=== PATIENT | male | born 1955 | race Caucasian/White ===

== ENCOUNTER 2022-10-15 20:33 | Observation (INO) | payer MEDICARE, SELFPAY ==
--- NOTE | ~2022-10-15 | CT_ITS ---
EXAMINATION: CT abdomen pelvis wo con DATE: 10/16/2022 12:19 INDICATION: Rectal bleeding TECHNIQUE: Computed tomography (CT) of the abdomen and pelvis was performed without intravenous contr ast. The dose-length product (DLP) was 1066.76 mGy-cm. Automated exposure control and iterative recon struction technique were employed. COMPARISON: None FINDINGS: Minimal dependent atelectasis is present in the lung bases. The heart size is normal. Punct ate calcifications in an otherwise normal spleen likely represent healed granulomatous disease. The l iver, pancreas, and adrenal glands are normal. There may be stones or sludge in the gallbladder. Ther e is a large diverticulum of the third portion of the duodenum. There is calcified atherosclerosis of the aorta and many of the other arteries. No pathologically enlarged abdominal or pelvic lymph nodes are identified. No free intraperitoneal gas or evidence of bowel obstruction. Colonic diverticulosis is present without evidence of diverticulitis. There are phleboliths of the otherwise normal appendi x. There is moderate lumbar spondylosis. IMPRESSION: 1. No CT correlate for the patient's symptoms. Reviewed, dictated and finalized at location A.
[2022-10-15 20:45] VITALS: BP 144/101; PULSE 113; RESP 19; TEMP 36.2; O2SAT 96
[2022-10-15 20:57] LABS: Basophils Absolute Auto 0.1 K/mm3 (0.0-0.1); Basophils Percent Auto 0.6 % (0.2-1.2); Eosinophils Absolute Auto 0.1 K/mm3 (0-0.3); Hematocrit 42.5 % (42.0-52.0); Immature Granulocyte Absolute 0.04 K/mm3 (0.00-0.031); Immature Granulocyte Percent A 0.3 % (0-0.5); Lymphocytes Absolute Auto 1.39 K/mm3 (0.9-3.2); Lymphocytes Percent Auto 11.7 % (18.3-44.2); Mean Corpuscular HGB Conc 35.3 g/dl (32-36); Mean Corpuscular Hemoglobin 31.4 pg (26-34); Mean Corpuscular Volume 88.9 fl (80-100); Mean Platelet Volume 8.8 fl (7.4-10.4); Monocytes Absolute Auto 1.1 K/mm3 (0.1-0.6); Monocytes Percent Auto 9.4 % (2.6-8.5); Neutrophils Absolute Auto 9.1 K/mm3 (1.3-6.7); Platelet Count Result 326 k/mm3 (150-375); Red Blood Count 4.78 M/mm3 (4.6-6.20); White Blood Count 11.9 K/mm3 (4.5-10.0)
[2022-10-15 21:09] LABS: Alanine Aminotransferase 23 U/L (6-50); Albumin Level 4.3 g/dL (3.5-5.1); Alkaline Phosphatase 84 U/L (38-126); Anion Gap 10 mmol/L (8-16); Aspartate Amino Transferase 22 U/L (17-59); Bilirubin,Total 0.7 mg/dL (0.2-1.3); Blood Urea Nitrogen 18 mg/dL (9-20); Carbon Dioxide 15 mmol/L (22-30); Chloride 110 mmol/L (98-107); Estimated CRCL calculation 80 ml/min; Estimated Glomerular Filt Rate > 60; Glucose 127 mg/dL (65-110); Sodium 135 mmol/L (137-145)
[2022-10-15 21:12] LABS: INR 1.1; Prothrombin Time 14.7 Seconds (11.1-14.7)
[2022-10-15 21:13] LABS: Partial Thromboplastin Time 32.1 SECONDS (22.3-36.8)
[2022-10-15 23:12] VITALS: BP 119/83; PULSE 117; TEMP 36.1; O2SAT 98
[2022-10-16] VITALS (13 sets, daily range): BP systolic 111–134; BP diastolic 73–99; PULSE 79–108; RESP 13–20; TEMP 36.3–36.6; O2SAT 96–100; BMI 30.8
--- NOTE | 2022-10-16 02:35 | ED.GENADULT ---
HPI - General Adult General Chief complaint: GI Bleed Stated complaint: rectal bleeding Time Seen by Provider: 10/16/22 01:39 History of Present Illness HPI narrative: This is a 67-year-old male presenting ED with chief complaint of rectal bleeding. Patient says that he has had URI symptoms for last couple days. He states he had a hard coughing fit this morning and then had a bright red bowel movement. This has continued throughout the day. Patient has history of hemorrhoids. Denies use of blood thinners. He has never had a colonoscopy. He did have prostate cancer treated with radiation. Patient denies weakness, chest pain difficulty breathing or abdominal pain. Related Data Allergies Allergy/AdvReac Type Severity Reaction Status Date / Time No Known Allergies Allergy Verified 10/15/22 20:34 [facility] Past Medical History Medical History (Updated 10/16/22 @ 02:56 by Darius Whitten MD) Hypertension Exam Narrative: APPEARANCE: No apparent distress. Head: atraumatic. EYES: EOMI, NOSE: Atraumatic NECK: Trachea midline RESPIRATORY: No increased rate of breathing CARDIOVASCULAR: RRR, ABDOMINAL: Soft nontender no guarding or rebound, digital rectal exam revealed bright red blood per rectum MUSCULOSKELETAl: No obvious deformities NEURO: Alert. Moving 4/4 extremities SKIN:: Warm, dry. Normal color PSYCHIATRIC: Normal affect Course Vital Signs Vital signs: Vital Signs Temperature 97.1 F L 10/15/22 20:45 Pulse Rate 113 H 10/15/22 20:45 Respiratory Rate 19 10/15/22 20:45 Blood Pressure 144/101 H 10/15/22 20:45 Pulse Oximetry 96 10/15/22 20:45 Oxygen Delivery Room Air 10/15/22 20:45 Temperature 96.9 F L 10/15/22 23:12 Pulse Rate 103 H 10/16/22 01:17 Respiratory Rate 15 10/16/22 01:17 Blood Pressure 132/84 10/16/22 01:17 Pulse Oximetry 97 10/16/22 01:17 Oxygen Delivery Room Air 10/15/22 20:45 Medical Decision Making [facility] Narrative Medical decision making narrative: -Presentation: This is a 67-year-old male presenting with bright red blood per rectum. Slightly tachycardic on arrival. Benign abdominal exam. 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 Initial hemoglobin 15. This will be trended. Metabolic panel within normal limits. -Discussion of Management/Consultants: Dr. Bradly Almendarez -GI, Dr. Zamora -hospitalist -Dx tests considered but not ordered: none -Procedures: none -Interventions: none -Shared decision making / Disposition: patient will be admitted to the hospital to be evaluated by GI. Vital Signs Vital Signs: Vital Signs Temperature 97.1 F L 10/15/22 20:45 Pulse Rate 113 H 10/15/22 20:45 Respiratory Rate 19 10/15/22 20:45 Blood Pressure 144/101 H 10/15/22 20:45 Pulse Oximetry 96 10/15/22 20:45 Oxygen Delivery Room Air 10/15/22 20:45 Temperature 96.9 F L 10/15/22 23:12 Pulse Rate 103 H 10/16/22 01:17 Respiratory Rate 15 10/16/22 01:17 Blood Pressure 132/84 10/16/22 01:17 Pulse Oximetry 97 10/16/22 01:17 Oxygen Delivery Room Air 10/15/22 20:45 Lab Data 10/15/22 20:51 10/15/22 20:51 Labs: Lab Results 10/15/22 10/16/22 Range/Units 20:51 02:45 WBC 11.9 H (4.5-10.0) K/mm3 RBC 4.78 (4.6-6.20) M/mm3 Hgb 15.0 (14.0-18.0) g/dL Hct 42.5 (42.0-52.0) % MCV 88.9 (80-100) fl MCH 31.4 (26-34) pg MCHC 35.3 (32-36) g/dl RDW 13.0 (11.5-14.5) % Plt Count 326 (150-375) k/mm3 MPV 8.8 (7.4-10.4) fl Immature Gra
[2022-10-16 03:32] LABS: Influenza A QL RT-PCR Negative (Negative); Influenza B QL RT-PCR Negative (Negative); RSV RNA, RT-PCR Negative (Negative); SARS-CoV-2 RNA PCR Negative (Negative)
[2022-10-16] MEDS: LACTATED RINGERS 1,000 ML 125 ML IV CONT ×3 (03:49→23:47)
--- NOTE | 2022-10-16 04:56 | ADMGEN ---
This patient, Nathan Whitfield, was admitted to Medical Room 249-01. Patient/family oriented to hospital policies and general routines including ID bracelet, bed and alarms, visiting hours, pain management, procedures, bathroom and other care routines, personal items, smoking policy, room service/diet, and visiting hours. Information on how to activate the Rapid Response Team has been discussed. Patient/Family are encouraged to report perceived risks to care and to ask questions if they do not understand what they are told or what they should do.
--- NOTE | 2022-10-16 08:00 | PM.IMHP ---
H&P: HPI History of Present Illness Date/Time: 10/16/22 08:00 Chief Complaint: Rectal Bleeding Narrative: This is a 67-year-old male with a past medical history of hypertension and prostate cancer status post radiation. He presents to the ER last night with complaints of rectal bleeding at home. States that he had approximately 10 stools which he described as having large amounts of blood in some small clots. He states that he has a head cold and had a big fit of coughing which proceeded his bloody stools. He says that he has never had an episode like this before and denies hemorrhoids. He was concerned by the amount of bleeding so he called his son-in-law to bring him to the hospital as his is currently out of town. Patient was placed NPO and given IV fluids with a GI consult. I ordered a CT of abdomen and pelvis, occult blood test, and Protonix while we await GI recs. Initial hemoglobin on admission was 15, repeat hemoglobin today is 11.9. Besides the bleeding he denies dizziness, weakness, shortness of breath, chest pain, nausea, vomiting, constipation, and diarrhea. He does not take any blood thinners and he does not routinely take NSAIDs. Review of Systems Review of Systems: All systems reviewed & are unremarkable except as noted in HPI and below PMFSH Past Medical History Medical History (Updated 10/16/22 @ 13:40 by Melia Adams APRN) Hypertension Prostate cancer Surgical History Surgical History (Updated 10/16/22 @ 13:41 by Melia Adams APRN) History of right knee joint replacement Social History Social History (Updated 10/16/22 @ 13:43 by Melia Adams APRN) Smoking status: Former smoker Tobacco type: cigarettes Smoking end date: 03/07/13 Alcohol intake: never Substance use: never Lack of Transportation: No Lack of Food: Never True Current Housing: I Have Housing Concerned About Future Housing: No Difficulty Paying Gas/Electric Bills: No Difficulty Paying for Meds: No Currently Unemployed: No Education: Trade/Vocational Certificate Difficulty w/ Childcare or Family Care: No Living arrangements: with family Occupation/Education: retired 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 Gender identity (if verbalized by the patient): Male Spiritual care concerns: No Agree to blood products: Yes Meds Home Medications and Allergies Home Medications Medication Instructions Recorded Confirmed Type lisinopril 20 mg tablet 20 mg PO DAILY 10/16/22 10/16/22 History Allergies Allergy/AdvReac Type Severity Reaction Status Date / Time No Known Allergies Allergy Verified 10/15/22 20:34 Vital Signs Vital Signs - 24 hr 10/15/22 20:45 10/15/22 23:12 10/16/22 00:09 Temperature 97.1 F L 96.9 F L Pulse Rate 113 H 117 H 108 H Respiratory Rate 19 14 Blood Pressure 144/101 H 119/83 125/99 H Pulse Oximetry 96 98 98 Oxygen Delivery Room Air 10/16/22 01:17 10/16/22 03:20 10/16/22 04:39 Temperature Pulse Rate 103 H 101 H 87 Respiratory Rate 15 13 14 Blood Pressure 132/84 119/77 121/82 Pulse Oximetry 97 100 96 Oxygen Delivery 10/16/22 05:20 10/16/22 05:00 10/16/22 05:06 Temperature 98 F Pulse Rate 87 84 100 Respiratory Rate 14 20 Blood Pressure 129/73 Pulse Oximetry 96 100 Oxygen Delivery Room Air Exam Narrative: General: well-nourished, well-appearing 67-year-old male, sitting up in bed, comfortable, NARD, appears slightly anxious Neuro: awake, alert and oriented x4, speech clear, no focal neuro deficits noted HEENMT: normocephalic, atraumatic, EOMI, sclerae anicteric, moist oral mucosa Respiratory: Clear to auscultation bilaterally without crackles, rhonchi or wheezes, nonlabored breathing Cardio: regular rate, regular rhythm with S1-S2 Abdomen: nondistended, normoactive bowel sounds, soft, nontender to palpation Extremities: no edema, erythema, or tenderness to palpation, DP pulses 2+ bi
[2022-10-16 11:44] LABS: Basophils Percent Auto 0.4 % (0.2-1.2); Eosinophils Absolute Auto 0.1 K/mm3 (0-0.3); Eosinophils Percent Auto 0.6 % (0-4.4); Hematocrit 34.8 % (42.0-52.0); Hemoglobin 11.9 g/dL (14.0-18.0); Immature Granulocyte Absolute 0.03 K/mm3 (0.00-0.031); Immature Granulocyte Percent A 0.4 % (0-0.5); Lymphocytes Absolute Auto 1.18 K/mm3 (0.9-3.2); Lymphocytes Percent Auto 15.1 % (18.3-44.2); Mean Corpuscular HGB Conc 34.2 g/dl (32-36); Mean Corpuscular Volume 90.6 fl (80-100); Monocytes Absolute Auto 0.8 K/mm3 (0.1-0.6); Monocytes Percent Auto 10.6 % (2.6-8.5); Neutrophils Absolute Auto 5.7 K/mm3 (1.3-6.7); Neutrophils Percent Auto 72.9 % (45.5-73.1); Platelet Count Result 256 k/mm3 (150-375); Red Blood Count 3.84 M/mm3 (4.6-6.20); Red Cell Distribution Width 13.4 % (11.5-14.5); White Blood Count 7.8 K/mm3 (4.5-10.0)
[2022-10-16 13:06] LABS: Anion Gap 4 mmol/L (8-16); Blood Urea Nitrogen 20 mg/dL (9-20); Calcium 8.4 mg/dL (8.4-10.2); Carbon Dioxide 23 mmol/L (22-30); Chloride 108 mmol/L (98-107); Estimated CRCL calculation 89 ml/min; Estimated Glomerular Filt Rate > 60; Glucose 113 mg/dL (65-110); Sodium 135 mmol/L (137-145)
--- NOTE | 2022-10-16 15:21 | WPDGICN ---
Assessment and Plan Assessment and plan (1) GIB (gastrointestinal bleeding): Code(s): K92.2 - Gastrointestinal hemorrhage, unspecified Status: Acute Assessment and Plan: wonder if could be diverticula bleed but also noted dark stools noted drop in h/h will proceed with egd and colonoscopy (also need to assess for ulcers- use of nsaid's, etc) bowel prep tonigth (2) Painless rectal bleeding: Code(s): K62.5 - Hemorrhage of anus and rectum Status: Acute Assessment and Plan: scopes in am (3) Acute blood loss anemia: Code(s): D62 - Acute posthemorrhagic anemia Status: Acute Assessment and Plan: monitor for more signs of bleeding he has not had BM since 2 am and already feeling better (4) Dark stools: Code(s): R19.5 - Other fecal abnormalities Status: Acute Assessment and Plan: egd (5) Hypertension: Code(s): I10 - Essential (primary) hypertension Status: Acute (6) Prostate cancer: Code(s): C61 - Malignant neoplasm of prostate Status: Acute Assessment and Plan: had radiation will assess for proctitis GI Consult Note Consult date/time: 10/16/22 15:21 Reason for consult: gib HPI: Nathan Whitfield is a 67 year old male with past medical history of hypertension and prostate cancer status post radiation.?He has been dealing with cold symptom for which took nsaid's like 3 days. He came to the ER last night with complaints of new onset of rectal bleeding. He had total of up to 10 loose stools with large amount of bright red blood but towards the end also noted dark material. This started after had a spell of coughing.?He never had scopes. Initial hemoglobin on admission was 15, repeat hemoglobin today is 11.9. CT scan showed diverticulosis in colon and duodenum. Review of Systems Constitutional: Constitutional: Denies weakness Eyes: Eyes: Denies blurry vision ENT: Reports Normal hearing present Cardiovascular: Cardiovascular: Denies chest pain Respiratory: Respiratory: Reports cough Gastrointestinal: Gastrointestinal: Reports hematochezia Genitourinary: Genitourinary: Denies dysuria Musculoskeletal: Musculoskeletal: Denies neck pain Integumentary/Breasts: Skin/Breast: Denies rash Neurologic: Denies Abnormal speech present Psychiatric: Psychiatric: Denies behavioral changes [facility] Past Medical History Medical History (Updated 10/16/22 @ 15:25 by Pola Beyer MD) Acute blood loss anemia Dark stools GIB (gastrointestinal bleeding) Hypertension Prostate cancer Surgical History Surgical History (Updated 10/16/22 @ 13:41 by Melia Adams APRN) History of right knee joint replacement Social History Social History (Updated 10/16/22 @ 13:43 by Melia Adams APRN) Smoking status: Former smoker Tobacco type: cigarettes Smoking end date: 03/07/13 Alcohol intake: never Substance use: never Lack of Transportation: No Lack of Food: Never True Current Housing: I Have Housing Concerned About Future Housing: No Difficulty Paying Gas/Electric Bills: No Difficulty Paying for Meds: No Currently Unemployed: No Education: Trade/Vocational Certificate Difficulty w/ Childcare or Family Care: No Living arrangements: with family Occupation/Education: retired 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
[2022-10-16] MEDS: BISACODYL 5 MG TABLET EC 20 MG PO (17:26)
[2022-10-16] MEDS: polyethylene glycoL 3350 238 GM BOTTLE PO (17:26)
[2022-10-16 18:18] LABS: Hematocrit 38.4 % (42.0-52.0)
[2022-10-16 18:34] LABS: Immunochemical Fecal Occult Bl Positive (N)
[2022-10-16 18:35] LABS: IFOB Positive Control Positive
[2022-10-17] VITALS (10 sets, daily range): BP systolic 89–137; BP diastolic 55–86; PULSE 72–95; RESP 16–20; TEMP 36.8–37; O2SAT 95–98
[2022-10-17] MEDS: MAGNESIUM CITRATE 300 ML BTL PO (02:06)
[2022-10-17 05:23] LABS: Basophils Absolute Auto 0.1 K/mm3 (0.0-0.1); Basophils Percent Auto 1.1 % (0.2-1.2); Eosinophils Absolute Auto 0.1 K/mm3 (0-0.3); Eosinophils Percent Auto 1.9 % (0-4.4); Hematocrit 34.1 % (42.0-52.0); Hemoglobin 11.6 g/dL (14.0-18.0); Immature Granulocyte Absolute 0.03 K/mm3 (0.00-0.031); Immature Granulocyte Percent A 0.4 % (0-0.5); Lymphocytes Absolute Auto 1.31 K/mm3 (0.9-3.2); Lymphocytes Percent Auto 18.2 % (18.3-44.2); Mean Corpuscular Hemoglobin 31.1 pg (26-34); Mean Corpuscular Volume 91.4 fl (80-100); Mean Platelet Volume 9.1 fl (7.4-10.4); Monocytes Absolute Auto 0.8 K/mm3 (0.1-0.6); Neutrophils Absolute Auto 4.9 K/mm3 (1.3-6.7); Neutrophils Percent Auto 67.4 % (45.5-73.1); Platelet Count Result 250 k/mm3 (150-375); Red Blood Count 3.73 M/mm3 (4.6-6.20); Red Cell Distribution Width 13.3 % (11.5-14.5); White Blood Count 7.2 K/mm3 (4.5-10.0)
[2022-10-17 05:41] LABS: Alanine Aminotransferase 19 U/L (6-50); Albumin Level 3.6 g/dL (3.5-5.1); Alkaline Phosphatase 59 U/L (38-126); Anion Gap 5 mmol/L (8-16); Aspartate Amino Transferase 20 U/L (17-59); Bilirubin,Total 0.8 mg/dL (0.2-1.3); Blood Urea Nitrogen 16 mg/dL (9-20); Calcium 8.8 mg/dL (8.4-10.2); Carbon Dioxide 24 mmol/L (22-30); Chloride 105 mmol/L (98-107); Estimated CRCL calculation 79 ml/min; Estimated Glomerular Filt Rate > 60; Glucose 104 mg/dL (65-110); Potassium 3.8 mmol/L (3.4-5.0); Sodium 134 mmol/L (137-145)
--- NOTE | 2022-10-17 07:00 | WPDANESEPP ---
Anes - Eval Pre Procedure Procedure: Operation Date: 10/17/22 07:30 Proposed Procedures p Esophagogastroduodenoscopy & Colonoscopy - Pola Beyer MD Date/Time: 10/17/22 07:00 Pre Op Diagnosis: rectal bleeding Patient Data Age: 67 Gender: M Height: 1.75 m Weight: 94.8 kg Last Vital Signs Temp 36.8 C 10/17/22 04:18 Pulse 83 10/17/22 04:18 Resp 20 10/17/22 04:18 BP 133/74 10/17/22 04:18 Pulse Ox 98 10/17/22 04:18 O2 Del Method Room Air 10/16/22 21:20 Allergies Allergy/AdvReac Type Severity Reaction Status Date / Time No Known Allergies Allergy Verified 10/15/22 20:34 Home Medications Medication Instructions Recorded Confirmed Type lisinopril 20 mg tablet 20 mg PO DAILY 10/16/22 10/16/22 History Laboratory Tests 10/16/22 10/16/22 10/16/22 11:20 18:11 18:19 WBC 7.8 K/mm3 (4.5-10.0) RBC 3.84 L M/mm3 (4.6-6.20) Hgb 11.9 L D g/dL 13.0 L g/dL (14.0-18.0) (14.0-18.0) Hct 34.8 L % 38.4 L % (42.0-52.0) (42.0-52.0) MCV 90.6 fl (80-100) MCH 31.0 pg (26-34) MCHC 34.2 g/dl (32-36) RDW 13.4 % (11.5-14.5) Plt Count 256 k/mm3 (150-375) MPV 9.0 fl (7.4-10.4) Immature Gran % (Auto) 0.4 % (0-0.5) Neut % (Auto) 72.9 % (45.5-73.1) Lymph % (Auto) 15.1 L % (18.3-44.2) Pinal % (Auto) 10.6 H % (2.6-8.5) Eos % (Auto) 0.6 % (0-4.4) Baso % (Auto) 0.4 % (0.2-1.2) Lymph # (Auto) 1.18 K/mm3 (0.9-3.2) Pinal # (Auto) 0.8 H K/mm3 (0.1-0.6) Eos # (Auto) 0.1 K/mm3 (0-0.3) Baso # (Auto) 0.0 K/mm3 (0.0-0.1) Abs Immat Gran (auto) 0.03 K/mm3 (0.00-0.031) Absolute Neuts (auto) 5.7 K/mm3 (1.3-6.7) Absolute Nucleated RBC 0.0 K/mm3 (0.0-0.012) Nucleated RBC % 0.0 % (0.0-0.2) Sodium 135 L mmol/L (137-145) Potassium 4.0 mmol/L (3.4-5.0) Chloride 108 H mmol/L (98-107) Carbon Dioxide 23 mmol/L (22-30) Anion Gap 4 L mmol/L (8-16) BUN 20 mg/dL (9-20) Creatinine 0.80 mg/dL (0.7-1.3) Estim Creat Clear Calc 89 ml/min Estimated GFR > 60 (59 - ) Glucose 113 H mg/dL (65-110) Calcium 8.4 mg/dL (8.4-10.2) Total Bilirubin AST ALT Alkaline Phosphatase Total Protein Albumin Stl Occult Blood (IFOB) Positive H (N) 10/17/22 04:44 WBC 7.2 K/mm3 (4.5-10.0) RBC 3.73 L M/mm3 (4.6-6.20) Hgb 11.6 L g/dL (14.0-18.0) Hct 34.1 L % (42.0-52.0) MCV 91.4 fl (80-100) MCH 31.1 pg (26-34) MCHC 34.0 g/dl (32-36) RDW 13.3 % (11.5-14.5) Plt Count 250 k/mm3 (150-375) MPV 9.1 fl (7.4-10.4) Immature Gran % (Auto) 0.4 % (0-0.5) Neut % (Auto) 67.4 % (45.5-73.1) Lymph % (Auto) 18.2 L % (18.3-44.2) Pinal % (Auto) 11.0 H % (2.6-8.5) Eos % (Auto) 1.9 % (0-4.4) Baso % (Auto) 1.1 % (0.2-1.2) Lymph # (Auto) 1.31 K/mm3 (0.9-3.2) Pinal # (Auto) 0.8 H K/mm3 (0.1-0.6) Eos # (Auto) 0.1 K/mm3 (0-0.3) Baso # (Auto) 0.1 K/mm3 (0.0-0.1) Abs Immat Gran (auto) 0.03 K/mm3 (0.00-0.031) Absolute Neuts (auto) 4.9 K/mm3 (1.3-6.7) Absolute Nucleated RBC 0.0 K/mm3 (0.0-0.012) Nucleated RBC % 0.0 % (0.0-0.2) Sodium 134 L mmol/L (137-145) Potassium 3.8 mmol/L (3.4-5.0) Chloride 105 mmol/L (98-107) Carbon Dioxide 24 mmol/L (22-30) Anion Gap 5 L mmol/L (8-16) BUN 16 mg/dL (9-20) Creatinine 0.90 mg/dL (0.7-1.3) Estim Creat Clear Calc 79 ml/min Estimated GFR > 60 (59 - ) Glucose 104 mg/dL (65-110) Calcium 8.8 mg/dL (8.4-10.2) Total Bilirubin 0.8 mg/dL (0.2-
--- NOTE | 2022-10-17 07:17 | P.PNAN_ITS ---
Anes - Eval Final PreProcedure Day of Procedure 10/17/22 07:17 Patient weight: obese Heart: regular rate and rhythm Lungs: clear to auscultation Airway: Mallampati scale Neurological: alert and oriented Last oral intake: >/= 8 hours ASA classification: III Emergent: no Anesthetic plan: proceed Anesthesia type and monitoring: general GIVS and standard monitoring Results Review: All pre-operative results and documents have been reviewed as part of the pre- operative evaluation. Informed Consent: The patient's anesthetic plan and its attendant risks and benefits were discussed with the patient/family/POA. Questions were solicited and answers provided to the satisfaction of the patient/family/POA.
[2022-10-17] MEDS: LACTATED RINGERS 1,000 ML 150 ML IV CONT (07:20)
--- NOTE | 2022-10-17 07:20 | PM.IMPN ---
Progress Note: A&P Assessment and Plan (1) Painless rectal bleeding: Code(s): K62.5 - Hemorrhage of anus and rectum Status: Acute Assessment and Plan: Reports 10 episodes of bloody stools at home with small clots. -H/H on admission was 15, repeat today is 11. Will re-check H/H at 1800 -VSS -NPO with IVF -Protonix IVP daily -Occult stool positive -CT abdomen and pelvis ordered -GI consult and recommendations are appreciated Plan for colonoscopy today (2) Hypertension: Code(s): I10 - Essential (primary) hypertension Status: Acute Assessment and Plan: Stable on lisinopril 20 mg PO daily -Blood pressures reviewed and are stable -Hold for now Plan -continue with daily PPI -GI follow-up as an outpatient. Will need small bowel capsule study as an outpatient. -will need repeat colonoscopy in 5 years -trial diet for lunch and then possible discharge this afternoon Subjective Date/time seen: 10/17/22 07:20 Interval history: This is a 67-year-old male with a past medical history of hypertension and prostate cancer status post radiation.? He presents to the ER last night with complaints of rectal bleeding at home.? States that he had approximately 10 stools which he described as having large amounts of blood in some small clots.? He states that he has a head cold and had a big fit of coughing which proceeded his bloody stools.? He says that he has never had an episode like this before and denies hemorrhoids.? He was concerned by the amount of bleeding so he called his son-in-law to bring him to the hospital as his is currently out of town.? Patient was placed NPO and given IV fluids with a GI consult.? I ordered a CT of abdomen and pelvis, occult blood test, and Protonix while we await GI recs.? Initial hemoglobin on admission was 15, repeat hemoglobin today is 11.9.? Besides the bleeding he denies dizziness, weakness, shortness of breath, chest pain, nausea, vomiting, constipation, and diarrhea.? He does not take any blood thinners and he does not routinely take NSAIDs. Interval History 10/17: Patient seen after just getting back from colonoscopy an EGD. EGD findings with mild gastritis not believed to be the source of bleeding. Colonoscopy shows diverticulosis, rectal polyps, and internal hemorrhoids. There was old blood in the colon and terminal ileum, therefore GI recommends small-bowel capsule endoscopy to be completed as an outpatient. Diet was advanced for lunch. From a medical standpoint patient is okay to discharge home with repeat labs to monitor hemoglobin and instruction to return to the hospital showed rectal bleeding reoccur. He will need outpatient follow-up with GI. Review of Systems Review of Systems: All systems reviewed & are unremarkable except as noted in HPI and below Exam Narrative: General: well-nourished, well-appearing 67-year-old male, sitting up in bed, comfortable, NARD, appears slightly anxious Neuro: awake, alert and oriented x4, speech clear, no focal neuro deficits noted HEENMT: normocephalic, atraumatic, EOMI, sclerae anicteric, moist oral mucosa Respiratory: Clear to auscultation bilaterally without crackles, rhonchi or wheezes, nonlabored breathing Cardio: regular rate, regular rhythm with S1-S2 Abdomen: nondistended, normoactive bowel sounds, soft, nontender to palpation Extremities: no edema, erythema, or tenderness to palpation, DP pulses 2+ bilaterally Skin: no rashes or lesions, warm and dry Psych: appropriate mood and affect, judgment and insight intact Objective Data Vital Signs Vital Signs: Vital Signs - 24 hr 10/16/22 08:00 10/16/22 12:00 10/16/22 08:15 Temperature Pulse Rate 104 H 85 Respiratory Rate Blood Pressure Pulse Oximetry Oxygen Delivery Room Air 10/16/22 13:51 10/16/22 16:00 10/16/22 19:18 Temperature 97.3 F L 97.7 F Pulse Rate 79 86 99 Respiratory Rate 18 18 Blood Pressure 111/74 13
[2022-10-17] MEDS: BENZOCAINE (*SP) 60 ML SPRAY CAN (HURRICAINE) 1 SPRAY MUCOUS MEM (07:33)
--- NOTE | 2022-10-17 07:43 | SUR.OPER ---
EGD ended 735 colonoscopy started 740
--- NOTE | 2022-10-17 07:48 | PC.NURSE ---
Multiple attempts made to change battery for telemetry. Patient down to GI lab in procedure.
[2022-10-17] MEDS: PANTOPRAZOLE 40 MG TABLET PO (08:57)
--- NOTE | 2022-10-17 10:19 | PM.DS ---
DS: Admitting Diagnosis Discharge Date TuesdayOctober 17 Admitting Diagnosis Rectal bleeding DS: Discharge Diagnosis Discharge Diagnosis (1) Painless rectal bleeding: Code(s): K62.5 - Hemorrhage of anus and rectum Status: Acute Assessment and Plan: Reports 10 episodes of bloody stools at home with small clots. -H/H on admission was 15, repeat today is 11. Will re-check H/H at 1800 -VSS -NPO with IVF -Protonix IVP daily -Occult stool positive -CT abdomen and pelvis ordered -GI consult and recommendations are appreciated Plan for colonoscopy today (2) Hypertension: Code(s): I10 - Essential (primary) hypertension Status: Acute Assessment and Plan: Stable on lisinopril 20 mg PO daily -Blood pressures reviewed and are stable -Hold for now Plan -continue with daily PPI -GI follow-up as an outpatient. Will need small bowel capsule study as an outpatient. -will need repeat colonoscopy in 5 years -trial diet for lunch and then possible discharge this afternoon DS: Summary Hospital Course Hospital Course: Interval history: This is a 67-year-old male with a past medical history of hypertension and prostate cancer status post radiation.? He presents to the ER last night with complaints of rectal bleeding at home.? States that he had approximately 10 stools which he described as having large amounts of blood in some small clots.? He states that he has a head cold and had a big fit of coughing which proceeded his bloody stools.? He says that he has never had an episode like this before and denies hemorrhoids.? He was concerned by the amount of bleeding so he called his son-in-law to bring him to the hospital as his is currently out of town.? Patient was placed NPO and given IV fluids with a GI consult.? I ordered a CT of abdomen and pelvis, occult blood test, and Protonix while we await GI recs.? Initial hemoglobin on admission was 15, repeat hemoglobin today is 11.9.? Besides the bleeding he denies dizziness, weakness, shortness of breath, chest pain, nausea, vomiting, constipation, and diarrhea.? He does not take any blood thinners and he does not routinely take NSAIDs. Interval History 10/17:? Patient seen after just getting back from colonoscopy an EGD.? EGD findings with mild gastritis not believed to be the source of bleeding.? Colonoscopy shows diverticulosis, rectal polyps, and internal hemorrhoids.? There was old blood in the colon and terminal ileum, therefore GI recommends small-bowel capsule endoscopy to be completed as an outpatient.? Diet was advanced for lunch.? From a medical standpoint patient is okay to discharge home with repeat labs to monitor hemoglobin and instruction to return to the hospital showed rectal bleeding reoccur.? He will need outpatient follow-up with GI. Status at Discharge Cognitive/behavioral status at discharge: A&O x4, pleasant Time Spent with Patient Time attestation: Total time spent providing and/or coordinating discharge services:32 Exam Narrative: General: well-nourished, well-appearing 67-year-old male, sitting up in bed, comfortable, NARD, appears slightly anxious Neuro: awake, alert and oriented x4, speech clear, no focal neuro deficits noted HEENMT: normocephalic, atraumatic, EOMI, sclerae anicteric, moist oral mucosa Respiratory: Clear to auscultation bilaterally without crackles, rhonchi or wheezes, nonlabored breathing Cardio: regular rate, regular rhythm with S1-S2 Abdomen: nondistended, normoactive bowel sounds, soft, nontender to palpation Extremities: no edema, erythema, or tenderness to palpation, DP pulses 2+ bilaterally Skin: no rashes or lesions, warm and dry Psych: appropriate mood and affect, judgment and insight intact DS: Data Data Completed and Pending Pending studies at discharge: Pending at discharge 10/17/22 07:44 Surgical [PTH] Routine 10/17/22 07:55 Surgical [PTH] Routine Labs on day of discharg
== END 2022-10-17 14:05 | disposition home or self-care (01) ==
LOC: ANHED 10-16 02:56 → ANH2MED 10-16 11:48
PROVIDERS: Internal Medicine Gastroenterology; Nurse Practitioner Acute Care; Admitting Provider Internal Medicine; Emergency Provider Emergency Medicine; Visit Provider Student in an Organized Health Care Education/Training Program
PROC: 0DJ08ZZ Inspection of Upper Intestinal Tract, Via Natural or Artificial Opening Endoscopic (ICD-10-PCS; CPT 43235; principal; 2022-10-17 07:30)
DX: K62.5 Hemorrhage of anus and rectum (principal); K57.30 Diverticulosis of large intestine without perforation or abscess without bleeding; D12.8 Benign neoplasm of rectum; K64.8 Other hemorrhoids; K29.70 Gastritis, unspecified, without bleeding; D62 Acute posthemorrhagic anemia; I10 Essential (primary) hypertension; Z85.46 Personal history of malignant neoplasm of prostate; Z92.3 Personal history of irradiation; Z87.891 Personal history of nicotine dependence
CPT/HCPCS: 45385; 43239; 36415; 74176; 80048; 80053; 82274; 85014; 85018; 85025; 85610; 85730; 86850; 86900; 86901; 87637; 88305; 96360; 96361; 99285; A9270; G0378; J2704; J7120

== ENCOUNTER 2022-11-17 05:34 | Outpatient (CLI) | payer MEDICARE, SELFPAY ==
--- NOTE | 2022-11-17 06:36 | SUR.OPER ---
Patient brought to GI Lab. Instructions for patient undergoing Capsule Endoscopy reviewed with patient. Consent form signed. Sensor array applied to patient's abdomen and connected to recorded. Patient swallowed capsule with 16 ozs of water infused with Simethicone. Patient instructed they may have clear liquids at 0830 this AM and eat or drink at 1030 this AM. Patient instructed to return to GI Lab at 1500 this afternoon for removal of recording device and to call [phone] or to return to the hospital if any nausea and vomiting or abdominal pain is experienced.
--- NOTE | 2022-11-17 14:49 | SUR.PREOP ---
Patient returned to the GI Lab at 1445 for recorder box removal. Patient voiced no complaints. States they have understanding of instructions. Patient left ambulatory.
== END 2022-11-17 05:35 | disposition home or self-care (01) ==
PROVIDERS: PCP Internal Medicine; Visit Provider Internal Medicine Gastroenterology
PROC: 0DJ07ZZ Inspection of Upper Intestinal Tract, Via Natural or Artificial Opening (ICD-10-PCS; CPT 91110; principal; 2022-11-17 07:00)
DX: D50.0 Iron deficiency anemia secondary to blood loss (chronic) (principal); K92.2 Gastrointestinal hemorrhage, unspecified
CPT/HCPCS: 91110

== ENCOUNTER 2023-01-10 12:25 | Outpatient (CLI) | payer MEDICARE, SELFPAY ==
[2023-01-10 13:03] LABS: Hemoglobin 14.1 g/dL (14.0-18.0); Mean Corpuscular HGB Conc 34.4 g/dl (32-36); Mean Corpuscular Hemoglobin 29.8 pg (26-34); Mean Corpuscular Volume 86.7 fl (80-100); Mean Platelet Volume 9.3 fl (7.4-10.4); Platelet Count Result 258 k/mm3 (150-375); Red Blood Count 4.73 M/mm3 (4.6-6.20); Red Cell Distribution Width 12.8 % (11.5-14.5); White Blood Count 6.6 K/mm3 (4.5-10.0)
[2023-01-10 13:15] LABS: Alanine Aminotransferase 16 U/L (6-50); Albumin Level 4.1 g/dL (3.5-5.1); Alkaline Phosphatase 79 U/L (38-126); Anion Gap 7 mmol/L (8-16); Aspartate Amino Transferase 21 U/L (17-59); Bilirubin,Total 0.7 mg/dL (0.2-1.3); Blood Urea Nitrogen 15 mg/dL (9-20); Carbon Dioxide 22 mmol/L (22-30); Chloride 108 mmol/L (98-107); Estimated Glomerular Filt Rate > 60; Glucose 93 mg/dL (65-110); Potassium 3.9 mmol/L (3.4-5.0); Sodium 137 mmol/L (137-145)
== END 2023-01-10 12:26 | disposition home or self-care (01) ==
PROVIDERS: PCP Internal Medicine; Visit Provider Nurse Practitioner Family
DX: R19.5 Other fecal abnormalities (principal); K92.2 Gastrointestinal hemorrhage, unspecified
CPT/HCPCS: 36415; 80053; 85027

== ENCOUNTER 2023-01-12 08:09 | Outpatient (NON) | payer MEDICARE, SELFPAY ==
[2023-01-12 10:42] LABS: IFOB Positive Control Positive; Immunochemical Fecal Occult Bl Negative (N)
== END 2023-01-12 08:10 | disposition home or self-care (01) ==
PROVIDERS: PCP Internal Medicine; Visit Provider Nurse Practitioner Family
DX: K92.2 Gastrointestinal hemorrhage, unspecified (principal); R19.5 Other fecal abnormalities
CPT/HCPCS: 82274